=== PATIENT | female | born 1935 | race Caucasian/White ===

== ENCOUNTER 2018-12-29 15:11 | Inpatient (IN) | payer MEDICARE, OTHER ==
[~2018-12-29] VITALS: Ht 152.4 cm; Wt 70.8 kg
[2018-12-29] MEDS ORDERED: METO25TA3 PO (15:26)
[2018-12-29] MEDS ORDERED: DRON400T2 PO (15:26)
[2018-12-29] MEDS ORDERED: LOSA25TA27 PO (15:26)
[2018-12-29] MEDS ORDERED: LEVO75TA7 PO (15:26)
[2018-12-29] MEDS ORDERED: AZAT50TA PO (15:26)
[2018-12-29] MEDS ORDERED: ATOR10TA PO (15:26)
[2018-12-29] MEDS ORDERED: FAMO20TA8 PO (15:26)
[2018-12-29] MEDS ORDERED: PRED10TA PO (15:26)
[2018-12-29] MEDS ORDERED: ASPI-1152 PO (15:26)
[2018-12-29 15:46] LABS: BASOPHILS % (AUTO) 0.5 % (0.0-2.0); EOSINOPHILS % (AUTO) 0.9 % (0.0-6.0); HEMATOCRIT 34 % (33-45); HEMOGLOBIN 10.5 g/dL (11.5-14.8); LYMPHOCYTES # (AUTO) 0.3 /CMM (0.8-4.8); LYMPHOCYTES % (AUTO) 3.4 % (20.0-44.0); MEAN CORPUSCULAR HGB CONC 31 g/dl (31.0-36.0); MEAN CORPUSCULAR VOLUME 88 fL (82-100); MONOCYTES # (AUTO) 0.1 /CMM (0.1-1.30); MONOCYTES % (AUTO) 1.7 % (2.0-12.0); NEUTROPHILS % (AUTO) 93.5 % (43.0-81.0); PLATELET COUNT (AUTO) 253 /CMM (150-450); RED BLOOD CELL COUNT(AUTO) 3.83 MIL/uL (4.0-5.2); WHITE BLOOD COUNT (AUTO) 8.5 K/uL (4.3-11.0)
[2018-12-29 15:55] LABS: CALCIUM, SERUM 8.6 mg/dL (8.5-10.1); CARBON DIOXIDE 25 mmol/L (21-32); CHLORIDE 106 mmol/L (98-107); CREATININE 1.4 mg/dL (0.6-1.3); GLUCOSE 126 mg/dL (74-106); POTASSIUM 4.1 mmol/L (3.5-5.1); SODIUM SERUM 142 mmol/L (136-145); UREA NITROGEN, BLOOD 20 mg/dL (7-18)
[2018-12-29] MEDS ORDERED: IV NS 0.9% 500 ML BAG IV ONE ×2 (16:00→17:30)
[2018-12-29 16:01] LABS: ALANINE AMINOTRANSFERASE 39 U/L (12-78); ALBUMIN 3.1 g/dL (3.4-5.0); ALKALINE PHOSPHATASE 290 U/L (46-116); ASPARTATE AMINOTRANSFERASE 53 U/L (15-37); BILIRUBIN,DIRECT 0.3 mg/dL (0.0-0.2); BILIRUBIN,TOTAL 0.8 mg/dL (0.2-1.0); TOTAL PROTEIN, SERUM 6.3 g/dL (6.4-8.2)
[2018-12-29 16:40] LABS: APPEARANCE,URINE Slightly Cloudy (CLEAR); BILIRUBIN,URINE Negative (NEGATIVE); BLOOD, URINE Small Ery/uL (NEGATIVE); COLOR,URINE Yellow (YELLOW); KETONES,URINE Trace (NEGATIVE); LEUKOCYTE ESTERASE ,URINE Small (NEGATIVE); NITRITE, URINE Positive (NEGATIVE); PH,URINE 5.5 (5.0-8.0); PROTEIN,URINE 30 mg/dl (NEGATIVE); UGLUCOSE Negative (NEGATIVE); UROBILINOGEN,URINE 0.2 EU/dL (0.2)
--- NOTE | 2018-12-29 17:00 | NUR ---
Family at bedside. Updated with plan of care. Await US
[2018-12-29 17:15] LABS: BACTERIA,URINE 4+ /HPF (None Seen); SQUAMOUS EPITHELIAL CELL,UR 0-2 /HPF (None Seen)
--- NOTE | 2018-12-29 18:00 | NUR ---
US at BS. P pending admission await bed assignment NO acute changes from initial assessment NO obvious distress. NO active n/vomiting during course of ER stay VSS
--- NOTE | 2018-12-29 19:00 | NUR ---
Report to SCAR SAWYER
--- NOTE | 2018-12-29 19:08 | NUR ---
RECIEVED REPORT FROM JUAN BRAVO FOR HEENA. PT RESTING IN BED WITH NO S/S OF ACUTE DISTRESS NOTED. WILL CONTINUE TO MONITOR PT FOR COMFORT AND SAFETY. PT ON SQUEEZER OPERATOR AND POX.
[2018-12-29] MEDS ORDERED: CEFTRIAXONE 2 G in IV D5W 100 ML IV SCH (19:30)
[2018-12-29] MEDS ORDERED: methylPREDNISolone SOD SUCC 125 MG/2ML VIAL IV ONE (19:30)
--- NOTE | 2018-12-29 20:02 | NUR ---
REPORT GIVEN TO JUAN AVITIA FOR HEENA
[2018-12-29] MEDS ORDERED: methylPREDNISolone SOD SUCC 125 MG/2ML VIAL ONE (20:11)
[2018-12-29] MEDS ORDERED: CEFTRIAXONE 1GM BAG (ER ONLY) 100 ML IV ONE (20:11)
[2018-12-29 20:25] VITALS: BP 122/66
[2018-12-29] MEDS ORDERED: ACETAMINOPHEN 325 MG TABLET PO PRN (21:00)
[2018-12-29] MEDS ORDERED: ONDANSETRON HCL/PF 4 MG/2 ML VIAL IVP PRN (21:00)
[2018-12-29] MEDS ORDERED: Z GUARD REMEDY 2 OZ OINT TP PRN (21:00)
[2018-12-29] MEDS: methylPREDNISolone SOD SUCC 40 MG/ML VIAL IV SCH ×2 (21:36→21:49)
[2018-12-29] MEDS: ATORVASTATIN 10 MG TABLET PO SCH (21:59)
[2018-12-29] MEDS: IV NS 0.9% 1,000 ML IV PRN (22:00)
--- NOTE | 2018-12-29 22:22 | NUR ---
[employer] PER OVERHEAD DOOR TECHNICIAN AYAZ CT IS ROUTINE SO IT WILL BE DONE IN THE MORNING.
[2018-12-29] MEDS: IPRATROPIUM NEB FS 0.5 MG/2.5 ML AMPUL.NEB NEB SCH (23:57)
[2018-12-30] VITALS: BP 130/76
[2018-12-30 02:41] LABS: BASOPHILS % (AUTO) 0.1 % (0.0-2.0); HEMATOCRIT 30 % (33-45); HEMOGLOBIN 9.8 g/dL (11.5-14.8); LYMPHOCYTES # (AUTO) 0.4 /CMM (0.8-4.8); LYMPHOCYTES % (AUTO) 5.3 % (20.0-44.0); MEAN CORPUSCULAR HGB CONC 32 g/dl (31.0-36.0); MEAN CORPUSCULAR VOLUME 86 fL (82-100); MONOCYTES # (AUTO) 0.1 /CMM (0.1-1.30); MONOCYTES % (AUTO) 1.3 % (2.0-12.0); NEUTROPHILS # (AUTO) 7.9 /CMM (1.8-8.9); NEUTROPHILS % (AUTO) 93.3 % (43.0-81.0); PLATELET COUNT (AUTO) 190 /CMM (150-450); RED BLOOD CELL COUNT(AUTO) 3.51 MIL/uL (4.0-5.2); WHITE BLOOD COUNT (AUTO) 8.4 K/uL (4.3-11.0)
[2018-12-30 02:55] LABS: ALANINE AMINOTRANSFERASE 32 U/L (12-78); ALBUMIN 2.6 g/dL (3.4-5.0); ALKALINE PHOSPHATASE 232 U/L (46-116); ASPARTATE AMINOTRANSFERASE 34 U/L (15-37); BILIRUBIN,TOTAL 0.4 mg/dL (0.2-1.0); CALCIUM, SERUM 8.8 mg/dL (8.5-10.1); CARBON DIOXIDE 24 mmol/L (21-32); CHLORIDE 107 mmol/L (98-107); CREATININE 1.1 mg/dL (0.6-1.3); GLUCOSE 153 mg/dL (74-106); MAGNESIUM 1.7 mg/dL (1.8-2.4); PHOSPHORUS 3.7 mg/dL (2.5-4.9); POTASSIUM 4.3 mmol/L (3.5-5.1); SODIUM SERUM 141 mmol/L (136-145); TOTAL PROTEIN, SERUM 5.7 g/dL (6.4-8.2); UREA NITROGEN, BLOOD 17 mg/dL (7-18)
[2018-12-30 02:57] LABS: IRON, SERUM 12 ug/dl (50-175); TOTAL IRON BINDING CAPACITY 264 ug/dl (250-450)
[2018-12-30 03:02] LABS: CHOLESTEROL 117 mg/dL (<200); HDL CHOLESTEROL 65 mg/dL (40-60); LDL 49 mg/dL (0-99); THYROID STIMULATING HORMONE 0.087 uIU/mL (0.358-3.74); TRIGLYCERIDES 50 mg/dL (30-150)
[2018-12-30] MEDS: IPRATROPIUM NEB FS 0.5 MG/2.5 ML AMPUL.NEB NEB SCH ×6 (03:38→23:23)
[2018-12-30 04:00] VITALS: BP 144/85
--- NOTE | 2018-12-30 06:47 | NUR ---
STACKER AND SORTER OPERATOR [place] ER W/DX SEPSIS; PT IS A/O x4 ABLE TO MAKE NEEDS KNOWN. O2 2O NC. PT DENIES SOB. AMBULATES TO RESTROOM W/MIN ASSIST. NSR ON MONITOR. PLAN OF CARE DISCUSSED WITH PATIENT AND DAUGHTER VERBALIZES UNDERSTANDING. PT REPOSITIONED Q2HRS. BED BATH RENDERED. PT REQUESTED ROOM CHANGE NEIGHBOR WAS TOO LOUD.
--- NOTE | 2018-12-30 07:30 | NUR ---
RN OPENING NOTES RECEIVED PATIENT IN BED. A/OX4, ABLE TO MAKE NEEDS KNOWN. NOT IN ANY FORM OF DISTRESS, NO SOB. DENIED PAIN OR DISCOMFORT AT THIS TIME. IV ACCESS INTACT AND PATENT. KEPT PATIENT SAFE AND COMFORTABLE. BED IN LOW/LOCKED POSITION, SIDERAILS UPX2, HOB ELEVATED, CALL LIGHT IN REACH. CYRIL OCNTINUE TO MONITOR ACCORDINGLY
[2018-12-30 08:00] VITALS: BP 156/75
[2018-12-30] MEDS: ALBUTEROL FS 2.5 MG/0.5 ML VIAL.NEB NEB SCH ×4 (08:14→19:30)
[2018-12-30] MEDS: FAMOTIDINE (20 MG) 20 MG TABLET PO SCH (08:42)
[2018-12-30] MEDS: LEVOTHYROXINE SODIUM 75 MCG TABLET PO SCH (08:42)
[2018-12-30] MEDS: AZATHIOPRINE 50 MG TABLET PO SCH ×2 (08:43→17:38)
[2018-12-30] MEDS: ASPIRIN EC 81 MG TABLET.DR PO SCH (08:43)
[2018-12-30] MEDS: DRONEDARONE HYDROCHLORIDE 400 MG TABLET PO SCH ×2 (08:43→17:38)
[2018-12-30] MEDS: methylPREDNISolone SOD SUCC 40 MG/ML VIAL IV SCH ×3 (08:43→17:37)
[2018-12-30] MEDS: LOSARTAN POTASSIUM 25 MG TABLET PO SCH (08:45)
[2018-12-30] MEDS: Magnesium 1GM/D5W 100ML PREMIX 100 ML IV SCH ×2 (11:24→13:36)
[2018-12-30 12:00] VITALS: BP 121/62
[2018-12-30 16:00] VITALS: BP 131/72
[2018-12-30] MEDS: IV NS 0.9% 1,000 ML IV PRN (17:44)
[2018-12-30] MEDS ORDERED: METOPROLOL SUCCINATE 50 MG TAB.SR.24H PO SCH (18:00)
--- NOTE | 2018-12-30 19:05 | NUR ---
RN CLOSING NOTES PATIENT IN STABLE CONDITION. NO SIGNIFICANT CHANGE DURING SHIFT. ALL NEEDS ATTENDED AND PROVIDED. ALL DUE MEDICATIONS GIVEN ORDERED. KEPT PATIENT SAFE AND COMFORTABLE. BED IN LOW/LOCKED POSITION, SIDERAILS UPX2, CALL LIGHT IN REACH. ENDORSED TO NIGHT RN FOR HEENA.
[2018-12-30 20:00] VITALS: BP 156/67
--- NOTE | 2018-12-30 20:15 | NUR ---
OVEN EQUIPMENT REPAIRER OPENING NOTES RECEIVED REPORT FROM ROSY MARTINEZ. PATIENT A/A/O X3, ABLE TO MAKE NEEDS KNOWN. BREATHING EVEN & UNLABORED, TOLERATING ROOM AIR. NO RESPIRATORY DISTRESS NOTED. ON TELE W/ SINUS ARRYTHMIA, HR 74. RIGHT FOREARM IV #20 INTACT & PATENT W/ DRESSING CDI & IVF NS @ 75 ML/HR. DENIES ANY PAIN OR DISCOMFORT @ THIS TIME. SAFETY MEASURES IN PLACE W/ SIDE RAILS UP & BED ALARM ON. INSTRUCTED TO USE CALL LIGHT FOR ASSISTANCE. WILL CONTINUE TO MONITOR. Addendum: 12/30/18 at 2046 by AD LANDAVERDE RN *LEFT AC IV #20
[2018-12-30 20:44] LABS: BILIRUBIN,URINE NEGATIVE (NEGATIVE); BLOOD, URINE TRACE-INTA Ery/uL (NEGATIVE); COLOR,URINE YELLOW (YELLOW); KETONES,URINE NEGATIVE (NEGATIVE); LEUKOCYTE ESTERASE ,URINE TRACE (NEGATIVE); NITRITE, URINE NEGATIVE (NEGATIVE); PROTEIN,URINE NEGATIVE (NEGATIVE); UGLUCOSE NEGATIVE (NEGATIVE); UROBILINOGEN,URINE 0.2 EU/dL (0.2)
[2018-12-30 20:45] LABS: APPEARANCE,URINE SLIGHTLY CLOUDY (CLEAR)
[2018-12-30 20:51] LABS: BACTERIA,URINE Few /HPF (None Seen); SQUAMOUS EPITHELIAL CELL,UR Few /HPF (None Seen)
[2018-12-30 20:57] LABS: CREATININE, URINE 68.9 MG/DL (30.0-125.0); URINE TOTAL PROTEIN 24.9 mg/dL (0-11.9)
[2018-12-30] MEDS ORDERED: CEFTRIAXONE 1 G in IV D5W 50 ML IV SCH (21:00)
[2018-12-30 21:29] LABS: EOSINOPHIL,URINE None Seen
[2018-12-30] MEDS: ATORVASTATIN 10 MG TABLET PO SCH (21:55)
[2018-12-31] VITALS: BP 152/63
[2018-12-31] MEDS: IPRATROPIUM NEB FS 0.5 MG/2.5 ML AMPUL.NEB NEB SCH ×3 (02:31→11:12)
--- NOTE | 2018-12-31 04:30 | NUR ---
RETAIL ROUTE SUPERVISOR NOTES PATIENT REFUSED VS @ THIS TIME. SHE DID NOT WANT TO BE WOKEN UP & WANTED TO KEEP SLEEPING. WILL CHECK LATER.
[2018-12-31 06:00] VITALS: BP 173/84
--- NOTE | 2018-12-31 06:20 | NUR ---
CONSUMER INSIGHT ANALYST NOTES BP 173/84. PATIENT C/O LOWER BACK PAIN 02/02. TYLENOL GIVEN. ENDORSED TO AM NURSE.
[2018-12-31 06:34] LABS: HEMATOCRIT 28 % (33-45); HEMOGLOBIN 9.2 g/dL (11.5-14.8); LYMPHOCYTES # (AUTO) 0.6 /CMM (0.8-4.8); LYMPHOCYTES % (AUTO) 5.9 % (20.0-44.0); MEAN CORPUSCULAR HGB CONC 33 g/dl (31.0-36.0); MEAN CORPUSCULAR VOLUME 85 fL (82-100); MONOCYTES # (AUTO) 0.5 /CMM (0.1-1.30); MONOCYTES % (AUTO) 5.3 % (2.0-12.0); NEUTROPHILS # (AUTO) 9.1 /CMM (1.8-8.9); NEUTROPHILS % (AUTO) 88.8 % (43.0-81.0); PLATELET COUNT (AUTO) 200 /CMM (150-450); WHITE BLOOD COUNT (AUTO) 10.2 K/uL (4.3-11.0)
[2018-12-31 06:45] LABS: ALANINE AMINOTRANSFERASE 27 U/L (12-78); ALBUMIN 2.6 g/dL (3.4-5.0); ALKALINE PHOSPHATASE 187 U/L (46-116); ASPARTATE AMINOTRANSFERASE 19 U/L (15-37); BILIRUBIN,TOTAL 0.3 mg/dL (0.2-1.0); CALCIUM, SERUM 8.8 mg/dL (8.5-10.1); CARBON DIOXIDE 25 mmol/L (21-32); CHLORIDE 107 mmol/L (98-107); CREATININE 1.1 mg/dL (0.6-1.3); GLUCOSE 147 mg/dL (74-106); MAGNESIUM 2.1 mg/dL (1.8-2.4); PHOSPHORUS 3.8 mg/dL (2.5-4.9); SODIUM SERUM 141 mmol/L (136-145); TOTAL PROTEIN, SERUM 5.5 g/dL (6.4-8.2); UREA NITROGEN, BLOOD 21 mg/dL (7-18)
[2018-12-31 06:48] LABS: CREATINE KINASE, TOTAL 52 U/L (26-192)
[2018-12-31] MEDS: ALBUTEROL FS 2.5 MG/0.5 ML VIAL.NEB NEB SCH ×2 (07:09→11:12)
--- NOTE | 2018-12-31 07:10 | NUR ---
GOLD PLATER OPENING NOTES RECEIVED REPORT FROM SEXOLOGIST RN. PATIENT AWAKE, ALERT AND ORIENTED X3. PATIENT ON ROOM AIR, TOLERATING WELL, BREATHING EVEN & UNLABORED, NO RESPIRATORY DISTRESS NOTED. ON TELE SINUS RHYTHM WITH HR 70S. LEFT AC 20G INTACT AND PATENT W/ DRESSING CDI. NO S/S OF PAIN OR DISCOMFORT AT THIS TIME. SAFETY MEASURES IN PLACE W/ SIDE RAILS UP AND BED ALARM ON. WILL CONTINUE TO MONITOR THROUGHOUT SHIFT.
[2018-12-31 08:00] VITALS: BP 152/84
[2018-12-31] MEDS: FAMOTIDINE (20 MG) 20 MG TABLET PO SCH (08:08)
[2018-12-31] MEDS: LEVOTHYROXINE SODIUM 75 MCG TABLET PO SCH (08:08)
[2018-12-31 08:13] VITALS: BP 152/84
[2018-12-31] MEDS: DRONEDARONE HYDROCHLORIDE 400 MG TABLET PO SCH (08:13)
[2018-12-31] MEDS: AZATHIOPRINE 50 MG TABLET PO SCH (08:13)
[2018-12-31] MEDS: ASPIRIN EC 81 MG TABLET.DR PO SCH (08:13)
[2018-12-31] MEDS: LOSARTAN POTASSIUM 25 MG TABLET PO SCH (08:13)
[2018-12-31] MEDS: methylPREDNISolone SOD SUCC 40 MG/ML VIAL IV SCH (08:13)
[2018-12-31 10:21] LABS: THYROID STIMULATING HORMONE 0.087 uIU/mL (0.358-3.74)
[2018-12-31] MEDS ORDERED: SULF1TAB48 PO (11:10)
[2018-12-31] MEDS ORDERED: PNEUMOCOCCAL 23-VAL P-SAC VAC 0.5 ML VIAL SQ ONE (12:00)
--- NOTE | 2018-12-31 13:30 | NUR ---
MS RN CLOSING NOTES DR ORDERED TO DISCHARGE TO HOME.ALL THE DISCHARGE INSTRUCTIONS GIVEN TO THE PT INCLUDING THE MED PRESCRIPTION.DAUGHTER IS AT BED SIDE.IV LINE REMOVED FROM LEFT AC,NO BLEEDING NOTED.PRESSURE DRESSING APPLIED.ON ROOM AIR,TOLERATING WELL.NO SOB AND ACUTE DISTRESS NOTED.VITAL SIGNS CHECKED AND RECORDED.SKIN ASSESSMENT IS DONE,IT IS INTACT.LEFT WITH DAUGHTER BY PRIVATE CAR,PROCUREMENT PROFESSIONAL LOGISTICS ACCOMPANIED TO THE PARKING LOT.NO COMPLICATIONS NOTED
[2019-01-01] MEDS ORDERED: methylPREDNISolone SOD SUCC 40 MG/ML VIAL IV SCH (09:00)
[2019-01-01 13:11] LABS: *ANCANTIMYELOPEROXIDASE (MPO) <9.0 U/mL (0.0-9.0); *ANCANTIPROTEINASE 3 (PR-3) AB <3.5 U/mL (0.0-3.5)
[2019-01-02 12:10] LABS: *ANCA ATYPICAL p-ANCA <1:20 titer (Neg:<1:20); *ANCA CYTOPLASMIC (C-ANCA) <1:20 titer (Neg:<1:20)
== END 2018-12-31 13:30 | disposition home or self-care (01) | DRG 682 ==
LOC: ER 15:17 → TELE 18:50 → TELE1 20:31 → MEDSG1 12-31 09:52
PROVIDERS: ADMIT Nurse Practitioner Acute Care
DX: N17.0 Acute kidney failure with tubular necrosis (principal); J96.21 Acute and chronic respiratory failure with hypoxia; K80.21 Calculus of gallbladder without cholecystitis with obstruction; E87.2 Acidosis; N39.0 Urinary tract infection, site not specified; I50.32 Chronic diastolic (congestive) heart failure; D63.8 Anemia in other chronic diseases classified elsewhere; E03.9 Hypothyroidism, unspecified; E78.5 Hyperlipidemia, unspecified; E83.42 Hypomagnesemia; E86.9 Volume depletion, unspecified; I27.20 Pulmonary hypertension, unspecified; I48.2 Chronic atrial fibrillation; Z79.82 Long term (current) use of aspirin; Z95.0 Presence of cardiac pacemaker; R74.0 Nonspecific elevation of levels of transaminase and lactic acid dehydrogenase [LDH]; I11.0 Hypertensive heart disease with heart failure; J84.112 Idiopathic pulmonary fibrosis; B96.89 Other specified bacterial agents as the cause of diseases classified elsewhere; R74.8 Abnormal levels of other serum enzymes; Z79.52 Long term (current) use of systemic steroids
CPT/HCPCS: 36415; 71045-TC; 71250-TC; 76705-TC; 80048-TC; 80053-TC; 80061-TC; 80076-TC; 81000-TC; 82550-TC; 82570-TC; 83520; 83540-TC; 83605-TC; 83735-TC; 84100-TC; 84155-TC; 84300-TC; 84439-TC; 84443-TC; 84484-TC; 85025-TC; 85045-TC; 85730-TC; 86256; 87040-TC; 87081-TC; 87086-TC; 87186-TC; 93307-TC; G0378; J0696; J2920; J2930; J3475; J7030; J7040; J7060; J7500